=== PATIENT | male | born 1990 | race Caucasian/White ===

== ENCOUNTER 2017-07-11 19:29 | Emergency (ER) | payer SELFPAY ==
[2017-07-11] MEDS ORDERED: Sulfacetamide 10% Ophth Soln 15 ML Bottle EYELF ONE (19:30)
[2017-07-11] MEDS ORDERED: Tetracaine HCl/PF 0.5% 4 ML Bottle EYELF ONE (21:11)
[2017-07-11] MEDS ORDERED: Fluorescein 1 MG Ophth Strip EYELF ONE (21:11)
--- NOTE | 2017-07-11 21:17 | EDM.PDOC ---
ED HPI GENERAL MEDICAL PROBLEM - General Chief Complaint: Eye Problems Stated Complaint: SOMETHING IN HIS EYE [id number] Time Seen by Provider: 07/11/17 21:14 Source of Information: Reports: Patient History Limitations: Reports: No Limitations - History of Present Illness INITIAL COMMENTS - FREE TEXT/NARRATIVE: was working out in the wind and got something in left eye 4 days ago. feels irritated. Left Eye Pain Score (Numeric/FACES): 4 - Related Data Allergies Allergy/AdvReac Type Severity Reaction Status Date / Time No Known Allergies Allergy Verified 07/11/17 20:06 Home Meds: Home Meds . [No Known Home Meds] 07/11/17 [History] Past Medical History - Past Health History Medical/Surgical History: Denies Medical/Surgical History Social & Family History - Tobacco Use Smoking Status *Q: Current Every Day Smoker Years of Tobacco use: 7 Packs/Tins Daily: 0.1 Second Hand Smoke Exposure: Yes - Recreational Drug Use Recreational Drug Use: No ED ROS GENERAL - Review of Systems Review Of Systems: ROS reveals no pertinent complaints other than HPI. ED EXAM GENERAL W FULL EYE - Physical Exam Exam: See Below Exam Limited By: No Limitations General Appearance: Alert, WD/WN, No Apparent Distress Eyelids: Bilateral: Normal Appearance Conjunctiva & Sclera: Left: Injected Cornea Exam: Left: Foreign Body (removed f/b medial aspect without problem), Examined with Flourescein (abrasion medial aspect), Bilateral: Normal Appearance Extraocular Movements: Bilateral: Intact Pupillary Size: Bilateral: 4 mm Pupillary Reaction: Bilateral: Brisk Anterior Chamber: Bilateral: Normal Appearance Ears: Hearing Grossly Normal Throat/Mouth: Normal Voice, No Airway Compromise Head: Atraumatic Neck: Non-Tender, Full Range of Motion Respiratory/Chest: No Respiratory Distress Cardiovascular: Regular Rate, Rhythm GI/Abdominal: Soft, Non-Tender Neurological: Alert, Oriented, Normal Cognition, Normal Gait, No Motor/Sensory Deficits Psychiatric: Normal Affect, Normal Mood Skin Exam: Warm, Dry, Normal Color Lymphatic: No Adenopathy Course - Vital Signs Last Recorded V/S: Last Vital Signs Temp 36.6 C 07/11/17 20:03 Pulse 77 07/11/17 20:03 Resp 18 07/11/17 20:03 BP 124/76 07/11/17 20:03 Pulse Ox 100 07/11/17 20:03 - Orders/Labs/Meds Meds: Medications Discontinued Medications Generic Name Dose Route Start Last Admin Trade Name Jean Paul PRN Reason Stop Dose Admin Fluorescein Sodium 1 mg 07/11/17 21:11 07/11/17 21:28 Ful-Daysi EYELF 07/11/17 21:12 1 mg ONETIME ONE Administration Tetracaine HCl 2 ml 07/11/17 21:11 07/11/17 21:28 Tetracaine 0.5% Steri-Unit [place] EYELF 07/11/17 21:12 2 ml ASDIRECTED ONE Administration Departure - Departure Time of Disposition: 21:41 Disposition: Home, Self-Care 01 Condition: Good Clinical Impression: Corneal FB (foreign body) Qualifiers: Encounter type: initial encounter Laterality: left Qualified Code(s): T15.02XA - Foreign body in cornea, left eye, initial encounter - Discharge Information Instructions: Eye Foreign Body, [id number] Forms: ED Department Discharge Additional Instructions: 1) don't rub eye 2) see eye doctor Thursday if still has problem rx togo; sulphacetamide eye drops 2 drops qid x 5 days
[2017-07-11] MEDS ORDERED: Sulfacetamide 10% Ophth Soln 15 ML Bottle ONE (21:38)
== END 2017-07-11 21:45 | disposition home or self-care (01) ==
LOC: DL.ED 19:29
DX: T15.02XA Foreign body in cornea, left eye, initial encounter (principal); F17.210 Nicotine dependence, cigarettes, uncomplicated
CPT/HCPCS: 99283; A9270; 99282